=== PATIENT | female | born 1960 | race Caucasian/White ===

== ENCOUNTER 2018-11-04 14:36 | Emergency (ER) | payer OTHER ==
[~2018-11-04] VITALS: Ht 154.9 cm; Wt 70.3 kg
[2018-11-04 15:05] VITALS: BP 114/66
[2018-11-04] MEDS ORDERED: NORFLEX100 MG PO (15:27)
[2018-11-04] MEDS ORDERED: NAPROSYN500 MG PO (15:27)
== END 2018-11-04 15:35 | disposition home or self-care (01) ==
LOC: ER 14:36
DX: S23.3XXA Sprain of ligaments of thoracic spine, initial encounter (principal); E11.40 Type 2 diabetes mellitus with diabetic neuropathy, unspecified; M79.7 Fibromyalgia; F20.9 Schizophrenia, unspecified; Z90.12 Acquired absence of left breast and nipple; X58.XXXA Exposure to other specified factors, initial encounter; Y92.89 Other specified places as the place of occurrence of the external cause; Y93.89 Activity, other specified; Y99.8 Other external cause status

== ENCOUNTER 2018-12-01 14:56 | Emergency (ER) | payer OTHER ==
[~2018-12-01] VITALS: Ht 154.9 cm; Wt 71.2 kg
[~2018-12-01 14:56] MED LIST: NAPROSYN500 MG PO; NORFLEX100 MG PO
[2018-12-01] MEDS ORDERED: TYLENOL EXTRA500 MG PO (17:16)
[2018-12-01 17:18] VITALS: BP 119/77
== END 2018-12-01 17:18 | disposition home or self-care (01) ==
LOC: ER 14:56
DX: S80.212A Abrasion, left knee, initial encounter (principal); S80.211A Abrasion, right knee, initial encounter; M54.2 Cervicalgia; E11.40 Type 2 diabetes mellitus with diabetic neuropathy, unspecified; M79.7 Fibromyalgia; F20.9 Schizophrenia, unspecified; Z88.5 Allergy status to narcotic agent; Z88.0 Allergy status to penicillin; Z91.040 Latex allergy status; W01.0XXA Fall on same level from slipping, tripping and stumbling without subsequent striking against object, initial encounter; Y93.89 Activity, other specified; Y92.89 Other specified places as the place of occurrence of the external cause; Y99.8 Other external cause status